=== PATIENT | male | born 1955 | race Two or more races ===

== ENCOUNTER 2019-05-23 08:18 | Emergency (ER) | payer MEDICARE, MEDICAID ==
[~2019-05-23] VITALS: Ht 157.5 cm; Wt 90.0 kg
[2019-05-23] MEDS ORDERED: ACETAMINOPHEN WITH CODEINE 300/30MG TABLET PO ONE (08:45)
[2019-05-23 08:59] LABS: BASOPHILS % 0.5 % (0.0-2.0); EOSINOPHILS % 1.4 % (0.0-5.0); HEMATOCRIT. 40.9 % (42.0-52.0); HEMOGLOBIN. 14.1 g/dL (14.0-18.0); LYMPHOCYTES % 15.6 % (20.0-50.0); MEAN CORPUSCULAR HEMOGLOBIN 31.1 pg (28.0-32.0); MEAN CORPUSCULAR VOLUME 90.1 fL (80.0-94.0); MEAN PLATELET VOLUME 8.4 fl (7.4-10.4); MONOCYTES % 6.9 % (2.0-8.0); NEUTROPHILS % 75.6 % (40.0-76.0); PLATELET 256 x1000/uL (130-400); RED BLOOD CELL COUNT 4.54 mill/uL (4.7-6.1); RED CELL DISTRIBUTION WIDTH 14.7 % (11.6-14.6)
[2019-05-23 09:05] LABS: CHLORIDE 106 mEq/L (98-107)
[2019-05-23 09:13] LABS: INR 3.8; PARTIAL THROMBOPLASTIN TIME 47.2 sec (23.4-31.0); PROTHROMBIN TIME 36.7 sec (9.6-11.0)
[2019-05-23 10:04] VITALS: BP 140/75
== END 2019-05-23 10:15 | disposition home or self-care (01) ==
LOC: ER 08:18
DX: M25.512 Pain in left shoulder (principal); M19.90 Unspecified osteoarthritis, unspecified site; E11.9 Type 2 diabetes mellitus without complications; I10 Essential (primary) hypertension; I25.10 Atherosclerotic heart disease of native coronary artery without angina pectoris; Y99.8 Other external cause status; Z95.4 Presence of other heart-valve replacement
CPT/HCPCS: 36415; 71045; 73030; 84484; 93005; 99284

== ENCOUNTER 2021-08-15 07:15 | Emergency (ER) | payer MEDICARE, MEDICAID ==
[~2021-08-15] VITALS: Ht 160 cm; Wt 49.0 kg
[2021-08-15] MEDS ORDERED: THROMBIN (BOVINE) 5000 UNITS/VIAL TOP ONE ×2 (08:00→12:00)
[2021-08-15 08:45] LABS: INR 2.7; PROTHROMBIN TIME 27.1 sec (9.6-11.0)
[2021-08-15 13:05] VITALS: BP 160/80
== END 2021-08-15 13:19 | disposition home or self-care (01) ==
LOC: ER 07:15
DX: K13.79 Other lesions of oral mucosa (principal); E11.9 Type 2 diabetes mellitus without complications; I25.10 Atherosclerotic heart disease of native coronary artery without angina pectoris; I10 Essential (primary) hypertension; T45.515A Adverse effect of anticoagulants, initial encounter; Y92.9 Unspecified place or not applicable
CPT/HCPCS: 36415; 85610; 99283; J3490